=== PATIENT | male | born 1970 | race Caucasian/White ===

== ENCOUNTER 2017-03-09 16:08 | Emergency (ER) | payer OTHER ==
[~2017-03-09] VITALS: Ht 188 cm; Wt 122.5 kg
[2017-03-09] MEDS ORDERED: NORCO 5/3251 TABLET PO (16:20)
[2017-03-09 17:04] VITALS: BP 125/81
== END 2017-03-09 17:05 | disposition home or self-care (01) ==
LOC: EME 16:08
DX: S39.012A Strain of muscle, fascia and tendon of lower back, initial encounter (principal); X50.9XXA Other and unspecified overexertion or strenuous movements or postures, initial encounter; Y92.149 Unspecified place in prison as the place of occurrence of the external cause; Y99.0 Civilian activity done for income or pay
CPT/HCPCS: 99281; 99284